=== PATIENT | male | born 1980 | race American Indian/Alaskan Native ===

== ENCOUNTER 2016-10-25 06:40 | Emergency (ER) | payer MEDICAID ==
[2016-10-25 06:51] VITALS: TEMP 97.7; O2SAT 99
[2016-10-25] MEDS ORDERED: Sodium Chloride 0.9% 1,000 ML IV STA (07:22)
--- NOTE | 2016-10-25 07:36 | ED PDOC ---
Arrival/HPI - General Chief Complaint: Abdominal Pain Time Seen by Provider: 10/25/16 07:14 Historian: Patient - History of Present Illness Narrative History of Present Illness (Text): 10/25/16 07:29 A 36 year old male, whose past medical history includes hypertension and pinched nerve, presents to the emergency department complaining of constant abdominal pain for the past 3-4 days. Patient states his pain is localized in the left side of his abdomen and radiated to the epigastric region. Patient reports he was seen by his PMD, who prescribed him Prilosec. Patient states he has been compliant with medication, with no relief. Patient notes loss stool yesterday but denies any fever, chills, body aches, nausea, vomiting, constipation, urinary symptoms, chest pain, shortness of breath or any other complaints. Patient is tolerating PO intake, denies any recent travel or sick contact at home. PMD: Patient is unable to remember PMD's name. Time/Duration: Other (3-4 days) Symptom Course: Unchanged, Other (Constant) Quality: Other Context: Other Past Medical History - Provider Review Nursing Documentation Reviewed: Yes - Psychiatric Hx Substance Use: No Family/Social History - Physician Review Nursing Documentation Reviewed: Yes Family/Social History: No Known Family HX Smoking Status: n Hx Alcohol Use: No Hx Substance Use: No Allergies/Home Meds Allergies/Adverse Reactions: Allergies No Known Allergies Allergy (Verified 10/25/16 06:52) Review of Systems - Physician Review All systems were reviewed & negative as marked: Yes - Review of Systems Constitutional: absent: Fevers, Night Sweats Respiratory: absent: SOB Cardiovascular: absent: Chest Pain Gastrointestinal: Abdominal Pain (Left side radiating to epigastric), Stool Changes (one episode of loss stool). absent: Constipation, Nausea, Vomiting Genitourinary Male: absent: Dysuria, Frequency, Hematuria, Urinary Output Changes Musculoskeletal: absent: Myalgias Physical Exam Vital Signs Reviewed: Yes Vital Signs Temp Pulse Resp BP Pulse Ox 10/25/16 09:42 77 16 137/95 H 10/25/16 06:46 97.7 F 76 18 148/84 99 Temperature: Afebrile Blood Pressure: Normal Pulse: Regular Respiratory Rate: Normal Appearance: Positive for: Well-Appearing, Non-Toxic, Comfortable Pain Distress: None Mental Status: Positive for: Alert and Oriented X 3 - Systems Exam Head: Present: Atraumatic, Normocephalic Pupils: Present: PERRL Extroacular Muscles: Present: EOMI Conjunctiva: Present: Normal Mouth: Present: Moist Mucous Membranes Neck: Present: Normal Range of Motion Respiratory/Chest: Present: Clear to Auscultation, Good Air Exchange. No: Respiratory Distress, Accessory Muscle Use Cardiovascular: Present: Regular Rate and Rhythm, Normal S1, S2. No: Murmurs Abdomen: Present: Tenderness (Left sided abdominal tenderness to palpation), Normal Bowel Sounds. No: Distention, Peritoneal Signs, Rebound, Guarding Back: Present: Normal Inspection Upper Extremity: Present: Normal Inspection. No: Cyanosis, Edema Lower Extremity: Present: Normal Inspection. No: Edema Neurological: Present: GCS=15, CN II-XII Intact, Speech Normal Skin: Present: Warm, Dry, Normal Color. No: Rashes Psychiatric: Present: Alert, Oriented x 3, Normal Insight, Normal Concentration Medical Decision Making ED Course and Treatment: 10/25/16 07:29 Impression: A 36 year old male with left sided abdominal pain radiating to epigastric region. Tenderness on exam. Differential Diagnosis included but are not limited to: Diverticulitis vs. Pancreatitis Plan: -- Abdomen and pelvis CT -- EKG -- Labs -- Urinalysis -- Pepcid, IV fluids, Toradol and Zofran -- Reassess and disposition Progress Notes: EKG shows NSR at 73 BPM with early repolarization, T-wave inversions in lead III. Interpreted by me. Report Date: 10/25/16 10:00 Procedure: CT Abdomen and Pelvis with contrast Dictated By: Floyd Will MD Impression: Unremarkable contrast enhanced CT of the abdomen and pelvis. 10/25/16 10:08 On re-evaluation, patient feels better and is in no acute distress. Abdomen non- tender. I have discussed the results and plan with the patient, who expresses understanding. Patient in agreement with plan to be discharged home. Patient is stable for discharge. Patient was instructed to follow up with physician or return if symptoms worsen or new concerning symptoms arise. - Lab Interpretations Lab Results: 10/25/16 08:00 10/25/16 08:00 Lab Results 10/25/16 08:00: WBC 5.4, RBC 5.48, Hgb 15.9, Hct 46.0, MCV 83.9, MCH 29.0, MCHC 34.6, RDW 13.8, Plt Count 272, MPV 10.2, Gran % 64.2, Lymph % (Auto) 29.8, [place] % (Auto) 4.0, Eos % (Auto) 1.8, Baso % (Auto) 0.2, Gran # 3.49, Lymph # 1.6, [place] # 0.2, Eos # 0.1, Baso # 0.01, Sodium 140, Potassium 4.2, Chloride 99, Carbon Dioxide 31, Anion Gap 14, BUN 12, Creatinine 1.0, Est GFR ( Amer) > 60, Est GFR (Non-Af Amer) > 60, Random Glucose 86, Calcium 8.8, Total Bilirubin 0.7, AST 50, ALT 39, Alkaline Phosphatase 52, Total Protein 8.5 H, Albumin 4.3, Globulin 4.2, Albumin/Globulin Ratio 1.0 L, Lipase 49 10/25/16 07:30: Urine Color Yellow, Urine Appearance Clear, Urine pH 7.5, Ur Specific [place] 1.010, Urine Protein Negative, Urine Glucose (UA) Negative, Urine Ketones Negative, Urine Blood Negative, Urine Nitrate Negative, Urine Bilirubin Negative, Urine Urobilinogen 0.2, Ur Leukocyte Esterase Negative, Urine Opiates Screen Negative, Urine Methadone Screen Negative, Ur Barbiturates Screen Negative, Ur Phencyclidine Scrn Negative, Ur Amphetamines Screen Negative , U Benzodiazepines Scrn Negative, U Oth Cocaine Metabols Negative, U Cannabinoids Screen Negative I have reviewed the lab results: Yes - RAD Interpretation Radiology Orders: 10/25/16 07:23 ABD & PELVIS IV CONTRAST ONLY [CT] Stat - Medication Orders Current Medication Orders: Discontinued Medications Famotidine (Pepcid) 20 mg IVP STAT STA Stop: 10/25/16 07:23 Last Admin: 10/25/16 07:55 Dose: 20 MG IVP Administration Document 10/25/16 07:55 [facility] (Rec: 10/25/16 08:06 [facility]-[id number]) Charges for Administration # of IVP Administrations 1 Sodium Chloride (Sodium Chloride 0.9%) 1,000 mls @ 1,000 mls/hr IV .Q1H STA Stop: 10/25/16 08:21 Last Admin: 10/25/16 08:06 Dose: 1,000 MLS/HR eMAR Start Stop Document 10/25/16 08:06 [facility] (Rec: 10/25/16 08:06 [id number] Intravenous Solution Start Date 10/25/16 Start Time 07:50 End Date 10/25/16 End time 08:50 Total Infusion Time 60 Iohexol (Omnipaque 350 150 Ml) Confirm Administered Dose 150 ml .ROUTE .STK-MED ONE Stop: 10/25/16 08:42 Iohexol (Omnipaque 240 (50 Ml)) Confirm Administered Dose 50 ml .ROUTE .STK-MED ONE Stop: 10/25/16 09:57 Ketorolac Tromethamine (Toradol) 30 mg IVP STAT STA Stop: 10/25/16 07:23 Last Admin: 10/25/16 07:57 Dose: 30 MG IVP Administration Document 10/25/16 07:57 [facility] (Rec: 10/25/16 08:07 [facility]-[id number]) Charges for Administration # of IVP Administrations 1 Ondansetron HCl (Zofran Inj) 4 mg IVP STAT STA Stop: 10/25/16 07:35 Last Admin: 10/25/16 08:05 Dose: 4 MG IVP Administration Document 10/25/16 08:05 [facility] (Rec: 10/25/16 08:08 [id number] Charges for Administration # of IVP Administrations 1 - Scribe Statement The provider has reviewed the documentation as recorded by the Margarita Palacios Provider Scribe Attestation: All medical record entries made by the Scribjocelin were at my direction and personally dictated by me. I have reviewed the chart and agree that the record accurately reflects my personal performance of the history, physical exam, medical decision making, and the department course for this patient. I have also personally directed, reviewed, and agree with the discharge instructions and disposition. Disposition/Present on Arrival - Present on Arrival Any Indicators Present on Arrival: No History of DVT/PE: No History of Uncontrolled Diabetes: No Urinary Catheter: No History of Decub. Ulcer: No History Surgical Site Infection Following: None - Disposition Have Diagnosis and Disposition been Completed?: Yes Diagnosis: Abdominal pain Disposition: HOME/ ROUTINE Disposition Time: 10:08 Patient Plan: Discharge Patient Problems: Current Active Problems Problem Status Diagnosed Abdominal pain Acute Condition: IMPROVED Discharge Instructions (ExitCare): Gastritis (ED), Abdominal Pain (ED) Additional Instructions: Mr. Plaza, thank you for letting us take care of you today. Your provider was Dr. Britton. You were treated for Abdominal Pain. The emergency medical care you received today was directed at your acute symptoms. If you were prescribed any medication, please fill it and take as directed. It may take several days for your symptoms to resolve. Return to the Emergency Department if your symptoms worsen, do not improve, or if you have any other problems. Please contact your doctor or call one of the physicians/clinics you have been referred to that are listed on the Patient Visit Information form that is included in your discharge packet. Bring any paperwork you were given at discharge with you along with any medications you are taking to your follow up visit. Our treatment cannot replace ongoing medical care by a primary care provider (PCP) outside of the emergency department. Thank you for allowing the [facility] team to be part of your care today. If you had an X-Ray or CT scan: A Radiologist will review the ED reading if any change in treatment is needed we will contact you. If you had a blood, urine, or wound culture: It will take several days for the results, if any change in treatment is needed we will contact you. If you had an STI test: It will take 48 hours for the results. Please call after 1 week if you have not heard back. Prescriptions: Aluminum Hydroxide/Magnesium H [Maalox 30 ml] 30 ml PO Q8 #1 bottle Ranitidine HCl [Zantac] 150 mg PO BID PRN #30 tablet PRN Reason: Pain, Mild (1-3) Referrals: [employer] Reji Chua, [Primary Care Provider] - Follow up with primary Forms: WORK NOTE
[2016-10-25 07:42] LABS: PH,URINE 7.5 (4.7-8.0); URINE BILIRUBIN NEGATIVE (NEGATIVE); URINE BLOOD NEGATIVE (NEGATIVE); URINE GLUCOSE (UA) NEGATIVE (NEGATIVE); URINE KETONE NEGATIVE (NEGATIVE); URINE LEUKOCYTE ESTERASE NEGATIVE Leu/uL (NEGATIVE); URINE PROTEIN NEGATIVE mg/dL (<30 mg/dL); URINE UROBILINOGEN 0.2 E.U./dL (<1 E.U./dL)
[2016-10-25 07:43] LABS: URINE APPEARANCE CLEAR (CLEAR); URINE COLOR YELLOW (YELLOW)
[2016-10-25 08:05] LABS: ADD MANUAL DIFF? NO
[2016-10-25 08:17] LABS: BASO # 0.01 K/mm3 (0.0-2.0); BASO % 0.2 % (0.0-3.0); EOS # 0.1 (0.0-0.7); EOS % 1.8 % (1.5-5.0); GRAN # 3.49 (1.4-6.5); GRAN % 64.2 % (50.0-68.0); LYMPH # 1.6 (1.2-3.4); LYMPH % 29.8 % (22.0-35.0); MEAN CELL VOLUME 83.9 fL (80.0-105.0); MEAN CORPUSCULAR HGB CONC 34.6 g/dl (31.0-37.0); MEAN PLATELET VOLUME 10.2 fl (7.0-11.0); MONO # 0.2 (0.1-0.6); PLATELET COUNT 272 10^3/uL (120.0-450.0); RED CELL DISTRIBUTION WIDTH 13.8 % (11.5-14.5); WHITE BLOOD COUNT 5.4 10^3/ul (4.5-11.0)
[2016-10-25 08:26] LABS: ALKALINE PHOSPHATASE 52 U/L (38-133); ALT/SGPT 39 U/L (7-56); AST/SGOT 50 U/L (15-59); BILIRUBIN,TOTAL 0.7 mg/dL (0.2-1.3); BLOOD UREA NITROGEN 12 mg/dL (7-21); CALCIUM 8.8 mg/dL (8.4-10.5); CARBON DIOXIDE 31 mmol/L (21-33); CHLORIDE 99 mmol/L (98-107); GFR AFRICAN-AMERICAN > 60; GLUCOSE,RANDOM 86 mg/dL (70-110); LIPASE 49 U/L (23-300); POTASSIUM 4.2 mmol/L (3.6-5.0); SODIUM 140 mmol/L (132-148); TOTAL PROTEIN 8.5 g/dL (5.8-8.3)
[2016-10-25 09:42] VITALS: BP 137/95; PULSE 77; RESP 16
[2016-10-25] MEDS ORDERED: Iohexol 240 (50 ml) ONE (09:56)
--- NOTE | 2016-10-25 10:01 | CT ---
PROCEDURE: CT Abdomen and Pelvis with contrast HISTORY: abd pain r/o diverticulitis COMPARISON: None. TECHNIQUE: Contrast dose: 150 cc of Omni 350 Radiation dose: Total exam DLP = 665 mGy-cm. This CT exam was performed using one or more of the following dose reduction techniques: Automated exposure control, adjustment of the mA and/or kV according to patient size, and/or use of iterative reconstruction technique. FINDINGS: LOWER THORAX: Unremarkable. LIVER: Unremarkable. No gross lesion or ductal dilatation. GALLBLADDER AND BILE DUCTS: Unremarkable. PANCREAS: Unremarkable. No gross lesion or ductal dilatation. SPLEEN: Unremarkable. ADRENALS: Unremarkable. No mass. KIDNEYS AND URETERS: Unremarkable. No hydronephrosis. No solid mass. VASCULATURE: Unremarkable. No aortic aneurysm. BOWEL: Unremarkable. No obstruction. No gross mural thickening. APPENDIX: Normal appendix. PERITONEUM: Unremarkable. No free fluid. No free air. LYMPH NODES: Unremarkable. No enlarged lymph nodes. BLADDER: Unremarkable. REPRODUCTIVE: Unremarkable. BONES: No acute fracture. OTHER FINDINGS: None. IMPRESSION: Unremarkable contrast enhanced CT of the abdomen and pelvis.
--- NOTE | 2016-10-25 11:38 | CARD ---
APPROVED REPORT EKG Measurement Heart [id number] MI [id number] [id number] <Conclusion> Normal sinus rhythm ST elevation, consider early repolarization, pericarditis, or injury PRWP V 1 - 4, possible lead placement
== END 2016-10-25 10:12 | disposition home or self-care (01) ==
LOC: ED 06:40
DX: R10.9 Unspecified abdominal pain (principal)
CPT/HCPCS: 74177; 80053; 80324; 80345; 80346; 80349; 80353; 80358; 80361; 81003; 83690; 83992; 85025; 93005; 96361; 96374; 96375; 99283; J1885; J2405; J7040; Q9966; Q9967